=== PATIENT | male | born 1970 | race Caucasian/White ===

== ENCOUNTER 2019-03-14 11:23 | Day surgery (SDC) | payer OTHER ==
[2019-03-14] MEDS ORDERED: fentaNYL 250 MCG/5 ML VIAL IVP ONE (11:24)
[2019-03-14] MEDS ORDERED: MIDAZOLAM 2 MG/2 ML VIAL IVP ONE (11:24)
[2019-03-14] MEDS ORDERED: LACTATED RINGERS 1,000 ML IV ONE (11:40)
--- NOTE | 2019-03-14 12:46 | SURGERY HX AND PHYSICAL(T) ---
Surgical History & Physical - PMH/PSH/Social Hx Does the pt have a hx of MRSA?: No Eyes, Ears, Nose, Throat: None Cardiovascular: None Respiratory: None Skin: None Endocrine/Autoimmune: None Gastrointestinal: None Urinary: None Musculoskeletal: None Psychiatric: None Eyes Ears Nose Throat (EENT): Tonsil/Adenoidectomy, Other - Home Meds and Allergies Home Medications: Cetirizine [ZyrTEC] 10 mg PO DAILY 03/13/19 Omeprazole 20 mg PO DAILY 03/13/19 Allergies/Adverse Reactions: Allergies Allergy/AdvReac Type Severity Reaction Status Date / Time No Known Drug Allergies Allergy Verified 03/13/19 15:57 - Vital Signs Heart Rate: 69 Blood Pressure: 113/75 Temperature: 36.2 C Respiratory Rate: 18 O2 Saturation: 98 Weight (kg): 82 kg Height: 1.75 m - Patient Review Patient Review: Problems were reviewed with the patient during this visit. Medications were reviewed with the patient during this visit. Allergies were reviewed this patient during this visit. Pertinent Tests Reviewed: All pertitent test for this patient were reviewed. - Assessment & Plan Assessment and Plan: Vitaly Griffin MD sent this very pleasant 48 year-old male to our office for screening colonoscopy January 09, 2019. He described and describes his bowel movements as regular and normal. He denies nausea, vomiting, constipation, diarrhea, melena, hematochezia, hematemesis, abdominal pain, unexplained weight loss, or change in the color, character or caliber of his stool. The patient denies any previous colon evaluation including barium enema or colonoscopy, but has had a sigmoidoscopy many years ago which he describes as a miserable experience. Allergies: No Known Allergies Meds: SUPREP BOWEL PREP KIT 17.5-3.13-1.6 GM/180ML ORAL SOLUTION (NA SULFATE-K SULFATE-MG SULF) Take one (6oz) bottle by mouth the PM before colonoscopy & one (6oz) bottle by mouth the AM of colonoscopy as directed by surgical clinic; Route: ORAL DICYCLOMINE HCL 10 MG ORAL CAPSULE (DICYCLOMINE HCL) Take one capsule by mouth twice daily as needed for abdominal cramping; Route: ORAL ZYRTEC ALLERGY 10 MG ORAL CAPSULE (CETIRIZINE HCL) ; Route: ORAL PRILOSEC OTC 20 MG ORAL TABLET DELAYED RELEASE (OMEPRAZOLE MAGNESIUM) ; Route: ORAL Past Medical History: Heartburn Acid reflux Jaundice Past Surgical History: Tonsillectomy Hernia 1909 Family History Summary: Family History of Other Cancer for Mother - Entered On: 01/09/2019 Family History of Other Cancer for Father - Entered On: 01/09/2019 Risk Factors: Smoked Tobacco Use: Never smoker Alcohol Use: no Drug Use: no Review of Systems CONSTITUTIONAL: No weight loss, fever, chills, weakness or fatigue. HEENT: Eyes: No visual loss, blurred vision, double vision or yellow sclerae. Ears, Nose, Throat: No hearing loss, sneezing, congestion, runny nose or sore throat. SKIN: No rash or itching. CARDIOVASCULAR: No chest pain, chest pressure or chest discomfort. No palpitations or edema. RESPIRATORY: No shortness of breath, cough or sputum. GASTROINTESTINAL: No anorexia, nausea, vomiting or diarrhea. No abdominal pain or blood. GENITOURINARY: No dysuria. No impotence. NEUROLOGICAL: No headache, dizziness, syncope, paralysis, ataxia, numbness or tingling in the extremities. No change in bowel or bladder control. MUSCULOSKELETAL: No muscle, back pain, joint pain or stiffness. HEMATOLOGIC: No anemia, bleeding or bruising. LYMPHATICS: No enlarged nodes. No history of splenectomy. PSYCHIATRIC: No history of depression or anxiety. ENDOCRINOLOGIC: No reports of sweating, cold or heat intolerance. No polyuria or polydipsia. ALLERGIES: No history of asthma, hives, eczema or rhinitis. Physical Exam General: Evaluated in room [address] 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[facility],48-year old male, appears stated age, well developed, well nourished HEENT: Normocephalic, atraumatic, extraocular movement intact, mucous membranes pink and moist, sclera anicteric and not injected Neck: Supple without pain on palpation, mass or bruit Cardiac: Regular rate and rhythm without rub, gallop, or murmur Chest: Clear to auscultation bilaterally Abdomen: Soft, nontender, normoactive bowel sounds, no hepatomegaly, no splenomegaly Genitourinary: Deferred Rectal: Deferred until colonoscopy Extremities: No gross neurovascular problem, no clubbing, cyanosis or edema Gait: Not reevaluated today as the patient is on a gurney. Psychiatric: Alert and oriented to person place and time, asks and answers questions appropriately, mood and affect appropriate Impression & Recommendations: Screening colonoscopy: Colonoscopy with possible biopsies and/or polypectomies. Indications, procedure, alternatives (such as barium enema, Cologuard and even no procedure at all) and risks including but not limited to perforation requiring operative repair, bleeding with its risks, and were fully explained to him. In the office, I mitzy diagrams explaining the colonic anatomy and the proposed procedure and handed it to him. In the office, conscious sedation was discussed at length with him as were its risks including but not limited to loss of airway, aspiration, respiratory depression, and not enough relief of pain and anxiety and he indicated that he wished to have conscious sedation for his procedure. In the office, I explained that MAC anesthesia is associated with a higher incidence of colon perforation. Review of his history does not reveal any significant systemic disease that would contraindicate use of conscious sedation or MAC anesthesia. All questions were fully answered. Verbal and written consent was obtained. The patient in preparation for his colonoscopy has been n.p.o. and his colon has been mechanically prepped. 20 minutes of [id number] time spent with the patient the majority of which was spent in discussion and in the generation of this document
[2019-03-14 14:29] VITALS: BP 101/68
== END 2019-03-14 11:24 | disposition home or self-care (01) ==
LOC: SDS 11:23
PROVIDERS: ATTEND Surgery
PROC: 0DJD8ZZ Inspection of Lower Intestinal Tract, Via Natural or Artificial Opening Endoscopic (ICD-10-PCS; principal; 2019-03-14 12:15)
DX: Z12.11 Encounter for screening for malignant neoplasm of colon (principal); K57.30 Diverticulosis of large intestine without perforation or abscess without bleeding; K64.8 Other hemorrhoids
CPT/HCPCS: 45378; J3010; J7120

== ENCOUNTER 2022-10-19 17:55 | Outpatient (CLI) | payer OTHER ==
--- NOTE | 2022-10-20 14:16 | XRAY Report ---
PROCEDURE: Cervical Spine 2 View INDICATIONS: MUSCLE SPASM, STRAIN OF MUSCLE TECHNIQUE: 2 view(s) of the cervical spine were acquired. COMPARISON: None. FINDINGS: Bones: No fractures or dislocations to the C7-T1 level. The lateral masses of C1 appear intact on t he odontoid view. No suspicious bony lesions. Very minimal degenerative disc space narrowing is not ed at C6-7. Soft tissues: No prevertebral soft tissue swelling. IMPRESSION: Minimal degenerative change. Reviewed by: Ana Luisa Prasad MD on 10/20/2022 2:14 PM PDT Approved by: Ana Luisa Prasad MD on 10/20/2022 2:14 PM PDT Station ID: [id number]
== END 2022-10-19 17:56 | disposition home or self-care (01) ==
LOC: DI 17:55
PROVIDERS: ATTEND Registered Nurse
DX: M62.830 Muscle spasm of back (principal); S16.1XXA Strain of muscle, fascia and tendon at neck level, initial encounter; M47.812 Spondylosis without myelopathy or radiculopathy, cervical region